=== PATIENT | female | born 1955 | race Caucasian/White ===

== ENCOUNTER 2016-12-20 23:04 | Emergency (ER) | payer OTHER ==
--- NOTE | ~2016-12-20 | CR150 ---
[facility] A Service of [facility] & [facility] RADIOLOGY TEXT RESULTS PATIENT: AALIYAH KLEIN LOCATION: [facility] : 59 UNIT #: [id number] AGE: [address]: Kylah Tyler MD SEX: F ORDER DR: [id number] [facility] [address] [place], [place] [address] [id number] E MR#: [id number] Acc #: [id number] NAME: AALIYAH KLEIN : 1955 SEX: F STUDY DATE/TIME: 12/20/2016 22:57 UNIT: [facility] ROOM: STUDY DESCRIPTION: CR Hip Min 2 Views Lt Attending Physician: Kylah Tyler M.D. Ordering Physician: Kylah Tyler M.D. Primary Care Physician: Rosi Reveles Aprn MEDICAL IMAGING REPORT This report is preliminary unless electronic signature is present EXAM 2 views of the left hip COMPARISON CT abdomen and pelvis dated August 09, 2009 and radiographs of the left hip dated May 07, 2012. INDICATIONS 61-year-old female with left hip pain. Inability to move the left leg after falling today. FINDINGS There is a marginal osteophyte formation at the L5 vertebral body. There are pelvic calcifications most keeping with phleboliths. Tiny chronic ossicle seen at the roof of the right acetabulum. Left hip is anatomically aligned. No evidence of acute fracture or degenerative change of the left hip. IMPRESSION No acute fracture, dislocation or degenerative change of the left hip. Dictated by... David Escobar M.D. THIS IS AN ELECTRONICALLY VERIFIED REPORT David Escobar M.D. at 12/23/2016 8:43 PM ZARA/tamia TD: 12/21/2016 04:18 JOB #: [id number] MEDICAL IMAGING REPORT COPY
[~2016-12-20 23:04] MED LIST: ALBUTEROL17 GM INH; ALPRAZOLAM; ALPRAZOLAM PO; ASPIRIN PO; CELEBREX PO; CIPRO PO; COLACE PO; DICLOFENAC PO; FLEXERIL PO; HUMALOG MIX 75/10 ML SUBQ; HUMULIN 70/30 V10 ML SUBQ; HUMULIN N100 U/ML; HUMULIN R100 U/ML SUBQ; HYDROCODON-ACE1 EAC4 PO; HYDROCODON-ACE1 EAC7 PO; INSULIN 70/30 SQ; KLONOPIN PO; LORTAB 7.5-5001 TAB PO; MIRALAX255 GM PO; MORPHINE IR PO; NICOTINE T1 PATCH .2 TOP; NO MEDICATIONS; NOVOLIN R100 U/ML INJ; PERCOCET5/325 PO; PERCOCET7.5 PO; PHENERGAN PO; PROTONIX PO; ULTRAM PO; UNKNOWN INSULIN; VICODIN 5/500 T1 TAB PO; VICODIN PO; VOLTAREN75 MG PO; ZITHROMAX PO; ZOCOR PO
== END 2016-12-21 00:37 | disposition home or self-care (01) ==
LOC: CED 23:04
DX: S70.02XA Contusion of left hip, initial encounter (principal); Z88.5 Allergy status to narcotic agent; Z88.1 Allergy status to other antibiotic agents; Z91.040 Latex allergy status; W19.XXXA Unspecified fall, initial encounter; Y92.410 Unspecified street and highway as the place of occurrence of the external cause
CPT/HCPCS: 73502; 96372; 99283; J2270

== ENCOUNTER → 2017-01-13 | Outpatient (CLI) | payer OTHER ==
--- NOTE | ~2017-01-13 | NM8 ---
[facility] A Service of [facility] & [facility] RADIOLOGY TEXT RESULTS PATIENT: AALIYAH KLEIN LOCATION: [facility] : 59 UNIT #: [id number] AGE: [address]: Fabian Mendoza MD SEX: F ORDER DR: [id number] [facility] [address] [place], [place] [address] [id number] O MR#: [id number] Acc #: [id number] NAME: AALIYAH KLEIN. : 1955 SEX: F STUDY DATE/TIME: 01/13/2017 10:50 UNIT: [facility] ROOM: STUDY DESCRIPTION: HI Bone or Joint Whole Body Attending Physician: Fabian Mendoza M.D. Referring Physician: Fabian Mendoza M.D. Ordering Physician: Fabian Mendoza M.D. Primary Care Physician: Rosi Reveles Aprn MEDICAL IMAGING REPORT This report is preliminary unless electronic signature is present EXAM Whole body bone scan, 01/13/2017. HISTORY Order states polycythemia vera. History sheet states leukemia diagnosed 1 month ago. History of right wrist fracture about 10 yearly screening. Deteriorated lumbar spine discs. Diabetes. Stomach and left leg pain. Upper lateral leg pain for several months. No trauma. COMPARISON STUDIES Pelvis and left hip radiographs, 12/20/2016; left ankle and foot radiographs, 05/10/2012. TECHNIQUE The patient received 24 mCi of Technetium-99m MDP in the right antecubital fossa. Anterior and posterior whole body scans are supplemented by spot images of the thorax and calvaria/cervical spine. FINDINGS There is mild symmetric bilateral acromioclavicular joint uptake, which is most commonly arthritic. There is minimal increased uptake in the right knee, probably in the patellofemoral compartment, which is also most commonly arthritic. The axial skeleton and hips are normal. The clinically painful left lower extremity demonstrates no abnormality from the hip to the distal lower leg. There is bilateral foot uptake in a fairly symmetric pattern. This appears to involve the posterior calcaneus, mid feet, and great toes bilaterally. Calcaneal enthesophytes are noted on lateral ankle regions of 05/10/2012. Left foot radiographs of the same date are noncontributory. [facility] A Service of [facility] RADIOLOGY TEXT RESULTS PATIENT: AALIYAH KLEIN LOCATION: [facility] : 59 UNIT #: [id number] AGE: [address]: Fabian Mendoza MD SEX: F ORDER DR: Spot images also obtained of the upper extremities. There is a focus of moderate to marked increased uptake in the left wrist, probably in the radiocarpal joint region, as well as mild increased uptake in the 3rd MCP joint. The opposite right upper extremity demonstrates nonspecific somewhat linear activity in the right wrist. The patient reportedly has suffered a right wrist fracture 10 years ago. In comparison with right wrist radiographs of 10/11/2007, the current uptake is of inexact etiology. IMPRESSION 1. No evidence of neoplastic uptake. 2. Multifocal uptake involving the bilateral AC joints, right knee, and bilateral feet, as well as bilateral wrists and left 3rd MCP joint is most likely arthritic. There is no abnormality noted at the left hip or femur. Dictated by... Padmini Gibson M.D. THIS IS AN ELECTRONICALLY VERIFIED REPORT Padmini Gibson M.D. at 01/15/2017 9:15 AM Kelly TD: 01/14/2017 18:12 JOB #: [id number] MEDICAL IMAGING REPORT Page 1 of 1 COPY
== END | disposition home or self-care (01) ==
LOC: CNUC 07:31
DX: D45 Polycythemia vera (principal)
CPT/HCPCS: 78306; A9503

== ENCOUNTER → 2017-07-04 | Outpatient (CLI) | payer OTHER ==
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
== END | disposition home or self-care (01) ==
LOC: CRAD 12:47
DX: M54.2 Cervicalgia (principal); M43.12 Spondylolisthesis, cervical region
CPT/HCPCS: 72040